=== PATIENT | male | born 1995 | race Caucasian/White ===

== ENCOUNTER 2019-10-12 18:36 | Inpatient (IN) | payer BC ==
[~2019-10-12] VITALS: Ht 172.7 cm; Wt 138.3 kg
[2019-10-12 19:00] VITALS: BP 138/75
[2019-10-12] MEDS ORDERED: fentaNYL PF VIAL 100 MCG/2 ML VIAL IVP PRN (19:15)
[2019-10-12] MEDS ORDERED: PIP/TAZO PER PHARMACY MC PRN (19:15)
[2019-10-12] MEDS: IV NORMAL SALINE 1000ML BAG 1,000 ML IV SCH (19:58)
[2019-10-12] MEDS: PIPERACILLIN/TAZOBACTAM 3.375 GM in IV NORMAL SALINE 50ML 50 ML IV SCH (20:18)
[2019-10-12] MEDS: LACTOBACILLUS RHAMNOSUS GG 1 CAPSULE. PO SCH (21:47)
[2019-10-12 23:00] VITALS: BP 123/57
[2019-10-13] MEDS: PIPERACILLIN/TAZOBACTAM 3.375 GM in IV NORMAL SALINE 50ML 50 ML IV SCH ×2 (00:28→06:15)
[2019-10-13] MEDS: ACETAMINOPHEN 325 MG TABLET. PO PRN ×3 (00:29→21:19)
[2019-10-13 03:00] VITALS: BP 142/88
[2019-10-13 05:58] LABS: BASO # 0.1 x10^3/uL (0.0-0.2); BASO % 1 % (0-3); EOS # 0.3 x10^3/uL (0.0-0.7); EOS % 3 % (0-3); HEMATOCRIT 35.7 % (39.0-53.0); HEMOGLOBIN 11.9 g/dL (13.0-17.5); LYMPH # 1.3 x10^3/uL (1.0-4.8); LYMPH % 14 % (24-48); MEAN CORPUSCULAR HEMOGLOBIN 29 pg (25-35); MEAN CORPUSCULAR HGB CONC 33 g/dL (31-37); MEAN CORPUSCULAR VOLUME 86 fL (79-100); MONO # 0.9 x10^3/uL (0.0-1.1); MONO % 9 % (0-9); NEUT # 7.2 x10^3/uL (1.8-7.7); NEUT % 74 % (31-73); PLATELET COUNT 238 x10^3/uL (140-400); RED BLOOD COUNT 4.12 x10^6/uL (4.30-5.70); RED CELL DISTRIBUTION WIDTH 13.3 % (11.5-14.5); WHITE BLOOD COUNT 9.7 x10^3/uL (4.0-11.0)
[2019-10-13 06:06] LABS: ALBUMIN 2.4 g/dL (3.4-5.0); ALBUMIN/GLOBULIN RATIO 0.6 (1.0-1.7); CALCIUM 8.8 mg/dL (8.5-10.1); GFR 41.6; POTASSIUM 3.5 mmol/L (3.5-5.1); TOTAL BILIRUBIN 0.4 mg/dL (0.2-1.0); TOTAL PROTEIN 6.6 g/dL (6.4-8.2)
[2019-10-13 07:00] VITALS: BP 150/79
[2019-10-13] MEDS: LACTOBACILLUS RHAMNOSUS GG 1 CAPSULE. PO SCH ×2 (08:14→20:31)
[2019-10-13] MEDS: IV NORMAL SALINE 1000ML BAG 1,000 ML IV SCH ×2 (09:46→16:00)
[2019-10-13 11:00] VITALS: BP 132/74
--- NOTE | 2019-10-13 11:17 | PDOC2 ---
CONSULT Date of Consult Date of Consult DATE: 10/13/19 TIME: 11:12 Reason for Consult Reason for Consult: GINA Referring Physician Referring Physician: PRECIOUS Identification/Chief Complaint Chief Complaint ABD PAIN Source Source: Chart review, Patient History of Present Illness Reason for Visit: THIS IS A 24 YR OLD WITH ABD PAIN. INITIALLY STARTED A BLISTER OR A PIMPLE THEN IT REDNESS OVER HIS ABD WALL AND NOW HE HAS AN ABSCESS. HAS BEEN AT [facility] GETTING ABX AND NOW HAS GINA WITH CR OF 2.0 AND HE WAS TRANSFERRED HERE. SUSPICIOUS FOR VANC RELATED GINA WITH VANC TROUGH LEVEL OF OVER 30. NO CKD HX. NO HX OF DM OR HTN OR HEMODYNAMIC INSTABILITY. NO NEPHROTOXINS, NO PROBLEMS VOIDING AND NO OTHER HX Current Medications Current Medications Current Medications Acetaminophen (Tylenol) 650 mg PRN Q6HRS PRN PO MILD PAIN / TEMP Last administered on 10/13/19at 00:29; Start 10/12/19 at 19:15 Sodium Chloride 1,000 ml @ 100 mls/hr Q10H IV Last administered on 10/13/19at 09:46; Start 10/12/19 at 20:00 Lactobacillus Rhamnosus (Culturelle) 1 cap BID PO Last administered on 10/12/19at 21:47; Start 10/12/19 at 21:00 Linezolid/Dextrose 300 ml @ 300 mls/hr Q12HR IV Last administered on 10/13/19at 09:47; Start 10/12/19 at 21:00 Piperacillin Sod/ Tazobactam Sod (Zosyn Per Pharmacy) 1 each PRN DAILY PRN [facility] SEE COMMENTS; Start 10/12/19 at 19:15; Status UNV Piperacillin Sod/ Tazobactam Sod 3.375 gm/Sodium Chloride 50 ml @ 100 mls/hr Q6HRS IV Last administered on 10/13/19at 06:15; Start 10/12/19 at 20:00; Stop 10/13/19 at 11:07; Status DC Fentanyl Citrate (Fentanyl 2ml Vial) 50 mcg PRN Q2HR PRN IVP PAIN Last administered on 10/12/19at 19:58; Start 10/12/19 at 19:15 Piperacillin Sod/ Tazobactam Sod 2.25 gm/Sodium Chloride 50 ml @ 100 mls/hr Q8HRS IV ; Start 10/13/19 at 14:00 Allergies Allergies: Coded Allergies: erythromycin base (Verified Allergy, Intermediate, 10/12/19) ROS General: YES: Fatigue PSYCHOLOGICAL ROS: YES: Anxiety Gastrointestinal: Yes Abdominal Pain Musculoskeletal: Yes Muscular Weakness Physical Exam General: Alert, Oriented X3, Cooperative, No acute distress, mild distress HEENT: Atraumatic, PERRLA Lungs: Clear to auscultation, Normal air movement Heart: Regular rate, Normal S1, Normal S2 Abdomen: Normal bowel sounds, Soft, Other (ABSCESS ABD WALL WITH DRAINAGE) Extremities: No clubbing, No cyanosis Skin: No breakdown Neuro: Normal speech, Sensation intact, Cranial nerves 3-12 NL Psych/Mental Status: Mental status NL, Mood NL MUSCULOSKELETAL: No joint tenderness, No deformity, No swelling Vitals VITALS Vital Signs Date Time Temp Pulse Resp B/P (MAP) Pulse Ox O2 Delivery O2 Flow Rate FiO2 10/13/19 08:00 Room Air 10/13/19 07:00 98.6 94 18 150/79 (102) 98 98.6 Labs Labs Laboratory Tests Test 10/13/19 05:15 White Blood Count 9.7 x10^3/uL (4.0-11.0) Red Blood Count 4.12 x10^6/uL (4.30-5.70) Hemoglobin 11.9 g/dL (13.0-17.5) Hematocrit 35.7 % (39.0-53.0) Mean Corpuscular Volume 86 fL (79-100) Mean Corpuscular Hemoglobin 29 pg (25-35) Mean Corpuscular Hemoglobin Concent 33 g/dL (31-37) Red Cell Distribution Width 13.3 % (11.5-14.5) Platelet Count 238 x10^3/uL (140-400) Neutrophils (%) (Auto) 74 % (31-73) Lymphocytes (%) (Auto) 14 % (24-48) Monocytes (%) (Auto) 9 % (0-9) Eosinophils (%) (Auto) 3 % (0-3) Basophils (%) (Auto) 1 % (0-3) Neutrophils # (Auto) 7.2 x10^3/uL (1.8-7.7) Lymphocytes # (Auto) 1.3 x10^3/uL (1.0-4.8) Monocytes # (Auto) 0.9 x10^3/uL (0.0-1.1) Eosinophils # (Auto) 0.3 x10^3/uL (0.0-0.7) Basophils # (Auto) 0.1 x10^3/uL (0.0-0.2) Sodium Level 143 mmol/L (136-145) Potassium Level 3.5 mmol/L (3.5-5.1) Chloride Level 109 mmol/L (98-107) Carbon Dioxide Level 23 mmol/L (21-32) Anion Gap 11 (6-14) Blood Urea Nitrogen 11 mg/dL (8-26) Creatinine 2.0 mg/dL (0.7-1.3) Estimated GFR (Cockcroft-Gault) 41.6 BUN/Creatinine Ratio 6 (6-20) Glucose Level 92 mg/dL (70-99) Calcium Level 8.8 mg/dL (8.5-10.1) Total Bilirubin 0.4 mg/dL (0.2-1.0) Aspartate Amino Transf (AST/SGOT) 31 U/L (15-37) Alanine Aminotransferase (ALT/SGPT) 68 U/L (16-63) Alkaline Phosphatase 86 U/L (46-116) Total Protein 6.6 g/dL (6.4-8.2) Albumin 2.4 g/dL (3.4-5.0) Albumin/Globulin Ratio 0.6 (1.0-1.7) Laboratory Tests Test 10/13/19 05:15 White Blood Count 9.7 x10^3/uL (4.0-11.0) Red Blood Count 4.12 x10^6/uL (4.30-5.70) Hemoglobin 11.9 g/dL (13.0-17.5) Hematocrit 35.7 % (39.0-53.0) Mean Corpuscular Volume 86 fL (79-100) Mean Corpuscular Hemoglobin 29 pg (25-35) Mean Corpuscular Hemoglobin Concent 33 g/dL (31-37) Red Cell Distribution Width 13.3 % (11.5-14.5) Platelet Count 238 x10^3/uL (140-400) Neutrophils (%) (Auto) 74 % (31-73) Lymphocytes (%) (Auto) 14 % (24-48) Monocytes (%) (Auto) 9 % (0-9) Eosinophils (%) (Auto) 3 % (0-3) Basophils (%) (Auto) 1 % (0-3) Neutrophils # (Auto) 7.2 x10^3/uL (1.8-7.7) Lymphocytes # (Auto) 1.3 x10^3/uL (1.0-4.8) Monocytes # (Auto) 0.9 x10^3/uL (0.0-1.1) Eosinophils # (Auto) 0.3 x10^3/uL (0.0-0.7) Basophils # (Auto) 0.1 x10^3/uL (0.0-0.2) Sodium Level 143 mmol/L (136-145) Potassium Level 3.5 mmol/L (3.5-5.1) Chloride Level 109 mmol/L (98-107) Carbon Dioxide Level 23 mmol/L (21-32) Anion Gap 11 (6-14) Blood Urea Nitrogen 11 mg/dL (8-26) Creatinine 2.0 mg/dL (0.7-1.3) Estimated GFR (Cockcroft-Gault) 41.6 BUN/Creatinine Ratio 6 (6-20) Glucose Level 92 mg/dL (70-99) Calcium Level 8.8 mg/dL (8.5-10.1) Total Bilirubin 0.4 mg/dL (0.2-1.0) Aspartate Amino Transf (AST/SGOT) 31 U/L (15-37) Alanine Aminotransferase (ALT/SGPT) 68 U/L (16-63) Alkaline Phosphatase 86 U/L (46-116) Total Protein 6.6 g/dL (6.4-8.2) Albumin 2.4 g/dL (3.4-5.0) Albumin/Globulin Ratio 0.6 (1.0-1.7) Assessment/Plan Assessment/Plan IMP GINA-MOST LIKEY DUE TO VANC ABD WALL ABSCESS PLAN HYDRATION CHECK UA R/O INTERSTITIAL NEPHRITIS ANTIBIOTICS WILL FOLLOW D/W OREN LAKHANI MD Oct 13, 2019 11:17
--- NOTE | 2019-10-13 11:46 | HP ---
ADMIT DATE: 10/12/2019 HISTORY OF PRESENT ILLNESS: The patient is a 24-year-old male patient, who was admitted to [facility] through the Emergency Room with abdominal wall cellulitis and abdominal wall abscess that was initially incised and swab sent for culture and sensitivity that grew gram-positive cocci, identified Staphylococcus aureus. The sensitivity is still pending at the time of this dictation. We did start him there on IV vancomycin and Zosyn. Unfortunately, his kidney function has worsened. His creatinine has risen from 1.1-1.9 and his vancomycin trough level was high at 30.1, so we discontinued that completely, switched him to Zyvox. He also developed an area of induration on his left side of the abdominal wall, left to the regional small abdominal wall abscess and repeat ultrasound showed that there are 3 fluid collections that are interconnected with a total measuring about 9.6 cm abscess, not excluded. Because of the abscess formation and worsening kidney function, the patient was transferred to [facility] to consult the surgical team, the park attendant as well as the Infectious Disease specialist. PAST MEDICAL HISTORY: Unremarkable except for bronchial asthma that he outgrow. PAST SURGICAL HISTORY: Unremarkable. ALLERGIES: HE IS ALLERGIC TO ERYTHROMYCIN. MEDICATIONS: He was transferred to continue on following medications: He is on IV Zyvox 600 mg every 12 hours, fentanyl 50 mcg IV every 2 hours, acetaminophen 650 mg every 6 hours, lactobacillus rhamnosus 1 capsule twice a day, and normal saline at 100 mL per hour. FAMILY HISTORY: Noncontributory. SOCIAL HISTORY: Single, never , has no children. He does not smoke, drink alcohol or use recreational drugs. He works as a sustainability officer. REVIEW OF SYSTEMS: As per history of present illness. PHYSICAL EXAMINATION: GENERAL: When I saw him today, he looked well and was clearly in no apparent respiratory distress. No pallor, jaundice, cyanosis or thyromegaly. No jugular venous distention. No lower limb edema. VITAL SIGNS: Heart rate was 94, blood pressure was 150/79, temperature was 98.6, respiratory rate was 18 and oxygen saturation was 98% on room air. HEAD, EYES, EARS, NOSE AND THROAT: Showed normocephalic, atraumatic. NECK: Supple. HEART: Showed normal first and second heart sounds. No gallop, rub or murmur. CHEST: Clear to auscultation. No crepitation or rhonchi. ABDOMEN: Distended with an indurated area mostly in the left to the midline, tender to palpation with erythema in the overlying skin. There is no guarding or rigidity. No organomegaly. All hernial orifices intact. Bowel sounds normal. NEUROLOGIC: He is awake, alert, responding appropriately. All cranial nerves intact. He moves extremities without difficulty. LABORATORY DATA: Showed that his white cell count was 9700, hemoglobin 11.9, hematocrit 36, MCV 86 and platelet count 258,000. His chemistry showed a serum sodium 143, potassium 3.5, chloride 109, bicarbonate 23, anion gap of 11, BUN 11, creatinine was 2. Estimated GFR was 42 mL per minute. His glucose was 92, calcium was 8.8. Total bilirubin, AST, ALT, alkaline phosphatase are normal. Total protein 6.6, albumin 2.4. ASSESSMENT AND PLAN: In summary, this is a 24-year-old male patient, who was admitted originally with abdominal wall cellulitis and with small abdominal abscess that was incised and drained. He was admitted to [facility] and was started on IV vancomycin and Zosyn. Unfortunately, his kidney function worsened. His creatinine has risen from 1.1-1.9, felt to be likely due to vancomycin nephrotoxicity, although he did receive also some ketorolac injection. Subsequent evaluation showed that he has also abdominal wall abscess and therefore, the patient was transferred to [facility] to consult the surgical team for incision and drainage. Consult the Nephrology team to assist with management of his acute kidney injury and Infectious Disease to assist with antibiotic treatment. WILBUR LANG MD DR: FRED/marva JOB#: [id number] / [id number]
--- NOTE | 2019-10-13 11:53 | PDOC2 ---
CONSULT Date of Consult Date of Consult DATE: 10/13/19 TIME: 11:49 Reason for Consult Reason for Consult: abd wall abscess Referring Physician Referring Physician: Dr. Lima Identification/Chief Complaint Chief Complaint abd wall pain and drainage Source Source: Chart review, Patient History of Present Illness Reason for Visit: 24 yo M with abdominal wall abscess. Began as boil week ago and attempted popping. Developed diffuse inflammation of abdominal wall pannus. Also noted to have drainage in midline. Currently appears comfortable. Past Medical History Cardiovascular: No pertinent hx Past Surgical History Past Surgical History: No pertinent history Family History Family History: No Significant Social History No ALCOHOL: none Current Medications Current Medications Current Medications Acetaminophen (Tylenol) 650 mg PRN Q6HRS PRN PO MILD PAIN / TEMP Last administered on 10/13/19at 00:29; Start 10/12/19 at 19:15 Sodium Chloride 1,000 ml @ 100 mls/hr Q10H IV Last administered on 10/13/19at 09:46; Start 10/12/19 at 20:00 Lactobacillus Rhamnosus (Culturelle) 1 cap BID PO Last administered on 10/12at 21:47; Start 10/12/19 at 21:00 Linezolid/Dextrose 300 ml @ 300 mls/hr Q12HR IV Last administered on 10/13/19at 09:47; Start 10/12/19 at 21:00 Piperacillin Sod/ Tazobactam Sod (Zosyn Per Pharmacy) 1 each PRN DAILY PRN MC SEE COMMENTS; Start 10/12/19 at 19:15; Status UNV Piperacillin Sod/ Tazobactam Sod 3.375 gm/Sodium Chloride 50 ml @ 100 mls/hr Q6HRS IV Last administered on 10/13/19at 06:15; Start 10/12/19 at 20:00; Stop 10/13/19 at 11:07; Status DC Fentanyl Citrate (Fentanyl 2ml Vial) 50 mcg PRN Q2HR PRN IVP PAIN Last administered on 10/12/19at 19:58; Start 10/12/19 at 19:15 Piperacillin Sod/ Tazobactam Sod 2.25 gm/Sodium Chloride 50 ml @ 100 mls/hr Q8HRS IV ; Start 10/13/19 at 14:00 Allergies Allergies: Coded Allergies: erythromycin base (Verified Allergy, Intermediate, 10/12/19) ROS Gastrointestinal: Yes Abdominal Pain Physical Exam General: Alert, Oriented X3, Cooperative, No acute distress HEENT: Atraumatic Lungs: Normal air movement Abdomen: Soft, Other (lower abdominal wall induration and erythema, small opening with drainage on dressing, but not inducible) Psych/Mental Status: Mental status NL, Mood NL Vitals VITALS Vital Signs Date Time Temp Pulse Resp B/P (MAP) Pulse Ox O2 Delivery O2 Flow Rate FiO2 10/13/19 08:00 Room Air 10/13/19 07:00 98.6 94 18 150/79 (102) 98 98.6 Labs Labs Laboratory Tests Test 10/13/19 05:15 White Blood Count 9.7 x10^3/uL (4.0-11.0) Red Blood Count 4.12 x10^6/uL (4.30-5.70) Hemoglobin 11.9 g/dL (13.0-17.5) Hematocrit 35.7 % (39.0-53.0) Mean Corpuscular Volume 86 fL (79-100) Mean Corpuscular Hemoglobin 29 pg (25-35) Mean Corpuscular Hemoglobin Concent 33 g/dL (31-37) Red Cell Distribution Width 13.3 % (11.5-14.5) Platelet Count 238 x10^3/uL (140-400) Neutrophils (%) (Auto) 74 % (31-73) Lymphocytes (%) (Auto) 14 % (24-48) Monocytes (%) (Auto) 9 % (0-9) Eosinophils (%) (Auto) 3 % (0-3) Basophils (%) (Auto) 1 % (0-3) Neutrophils # (Auto) 7.2 x10^3/uL (1.8-7.7) Lymphocytes # (Auto) 1.3 x10^3/uL (1.0-4.8) Monocytes # (Auto) 0.9 x10^3/uL (0.0-1.1) Eosinophils # (Auto) 0.3 x10^3/uL (0.0-0.7) Basophils # (Auto) 0.1 x10^3/uL (0.0-0.2) Sodium Level 143 mmol/L (136-145) Potassium Level 3.5 mmol/L (3.5-5.1) Chloride Level 109 mmol/L (98-107) Carbon Dioxide Level 23 mmol/L (21-32) Anion Gap 11 (6-14) Blood Urea Nitrogen 11 mg/dL (8-26) Creatinine 2.0 mg/dL (0.7-1.3) Estimated GFR (Cockcroft-Gault) 41.6 BUN/Creatinine Ratio 6 (6-20) Glucose Level 92 mg/dL (70-99) Calcium Level 8.8 mg/dL (8.5-10.1) Total Bilirubin 0.4 mg/dL (0.2-1.0) Aspartate Amino Transf (AST/SGOT) 31 U/L (15-37) Alanine Aminotransferase (ALT/SGPT) 68 U/L (16-63) Alkaline Phosphatase 86 U/L (46-116) Total Protein 6.6 g/dL (6.4-8.2) Albumin 2.4 g/dL (3.4-5.0) Albumin/Globulin Ratio 0.6 (1.0-1.7) Laboratory Tests Test 10/13/19 05:15 White Blood Count 9.7 x10^3/uL (4.0-11.0) Red Blood Count 4.12 x10^6/uL (4.30-5.70) Hemoglobin 11.9 g/dL (13.0-17.5) Hematocrit 35.7 % (39.0-53.0) Mean Corpuscular Volume 86 fL (79-100) Mean Corpuscular Hemoglobin 29 pg (25-35) Mean Corpuscular Hemoglobin Concent 33 g/dL (31-37) Red Cell Distribution Width 13.3 % (11.5-14.5) Platelet Count 238 x10^3/uL (140-400) Neutrophils (%) (Auto) 74 % (31-73) Lymphocytes (%) (Auto) 14 % (24-48) Monocytes (%) (Auto) 9 % (0-9) Eosinophils (%) (Auto) 3 % (0-3) Basophils (%) (Auto) 1 % (0-3) Neutrophils # (Auto) 7.2 x10^3/uL (1.8-7.7) Lymphocytes # (Auto) 1.3 x10^3/uL (1.0-4.8) Monocytes # (Auto) 0.9 x10^3/uL (0.0-1.1) Eosinophils # (Auto) 0.3 x10^3/uL (0.0-0.7) Basophils # (Auto) 0.1 x10^3/uL (0.0-0.2) Sodium Level 143 mmol/L (136-145) Potassium Level 3.5 mmol/L (3.5-5.1) Chloride Level 109 mmol/L (98-107) Carbon Dioxide Level 23 mmol/L (21-32) Anion Gap 11 (6-14) Blood Urea Nitrogen 11 mg/dL (8-26) Creatinine 2.0 mg/dL (0.7-1.3) Estimated GFR (Cockcroft-Gault) 41.6 BUN/Creatinine Ratio 6 (6-20) Glucose Level 92 mg/dL (70-99) Calcium Level 8.8 mg/dL (8.5-10.1) Total Bilirubin 0.4 mg/dL (0.2-1.0) Aspartate Amino Transf (AST/SGOT) 31 U/L (15-37) Alanine Aminotransferase (ALT/SGPT) 68 U/L (16-63) Alkaline Phosphatase 86 U/L (46-116) Total Protein 6.6 g/dL (6.4-8.2) Albumin 2.4 g/dL (3.4-5.0) Albumin/Globulin Ratio 0.6 (1.0-1.7) Images Images Previous abd US demonstrates fluid collection Assessment/Plan Assessment/Plan abd wall abscess appears to be spontaneously draining agree with abx and wound care no necrotic tissue or fluctuant area monitor cr per nephrology. Thanks for consult! FRANCOIS ZURITA MD Oct 13, 2019 11:53
[2019-10-13 12:59] LABS: BILIRUBIN,URINE NEGATIVE (NEG); CLARITY,URINE CLEAR; COLOR,URINE YELLOW; NITRITE,URINE NEGATIVE (NEG); PH,URINE 6.5; PROTEIN,URINE NEGATIVE (NEG-TRACE); UROBILINOGEN,URINE 0.2 mg/dL (0.2 mg/dL)
[2019-10-13 13:10] LABS: BACTERIA,URINE 0 /HPF (0-FEW); RBC,URINE OCC /HPF (0-2); SQUAMOUS EPITHELIAL CELL,UR OCC /LPF
[2019-10-13] MEDS: PIPERACILLIN/TAZOBACTAM 2.25 GM in IV NORMAL SALINE 50ML 50 ML IV SCH ×2 (13:57→22:21)
[2019-10-13 15:00] VITALS: BP 132/78
--- NOTE | 2019-10-13 18:36 | PDOC ---
Infectious Disease Note Vital Sign Vital Signs Vital Signs Date Time Temp Pulse Resp B/P (MAP) Pulse Ox O2 Delivery O2 Flow Rate FiO2 10/13/19 15:00 98.2 90 18 132/78 (96) 97 Room Air 98.2 Labs Lab Laboratory Tests Test 10/13/19 05:15 10/13/19 12:44 White Blood Count 9.7 x10^3/uL (4.0-11.0) Red Blood Count 4.12 x10^6/uL (4.30-5.70) Hemoglobin 11.9 g/dL (13.0-17.5) Hematocrit 35.7 % (39.0-53.0) Mean Corpuscular Volume 86 fL (79-100) Mean Corpuscular Hemoglobin 29 pg (25-35) Mean Corpuscular Hemoglobin Concent 33 g/dL (31-37) Red Cell Distribution Width 13.3 % (11.5-14.5) Platelet Count 238 x10^3/uL (140-400) Neutrophils (%) (Auto) 74 % (31-73) Lymphocytes (%) (Auto) 14 % (24-48) Monocytes (%) (Auto) 9 % (0-9) Eosinophils (%) (Auto) 3 % (0-3) Basophils (%) (Auto) 1 % (0-3) Neutrophils # (Auto) 7.2 x10^3/uL (1.8-7.7) Lymphocytes # (Auto) 1.3 x10^3/uL (1.0-4.8) Monocytes # (Auto) 0.9 x10^3/uL (0.0-1.1) Eosinophils # (Auto) 0.3 x10^3/uL (0.0-0.7) Basophils # (Auto) 0.1 x10^3/uL (0.0-0.2) Sodium Level 143 mmol/L (136-145) Potassium Level 3.5 mmol/L (3.5-5.1) Chloride Level 109 mmol/L (98-107) Carbon Dioxide Level 23 mmol/L (21-32) Anion Gap 11 (6-14) Blood Urea Nitrogen 11 mg/dL (8-26) Creatinine 2.0 mg/dL (0.7-1.3) Estimated GFR (Cockcroft-Gault) 41.6 BUN/Creatinine Ratio 6 (6-20) Glucose Level 92 mg/dL (70-99) Calcium Level 8.8 mg/dL (8.5-10.1) Total Bilirubin 0.4 mg/dL (0.2-1.0) Aspartate Amino Transf (AST/SGOT) 31 U/L (15-37) Alanine Aminotransferase (ALT/SGPT) 68 U/L (16-63) Alkaline Phosphatase 86 U/L (46-116) Total Protein 6.6 g/dL (6.4-8.2) Albumin 2.4 g/dL (3.4-5.0) Albumin/Globulin Ratio 0.6 (1.0-1.7) Urine Collection Type Unknown Urine Color Yellow Urine Clarity Clear Urine pH 6.5 Urine Specific [place] 1.010 Urine Protein Negative mg/dL (NEG-TRACE) Urine Glucose (UA) Negative mg/dL (NEG) Urine Ketones (Stick) Negative mg/dL (NEG) Urine Blood Trace (NEG) Urine Nitrite Negative (NEG) Urine Bilirubin Negative (NEG) Urine Urobilinogen Dipstick 0.2 mg/dL (0.2 mg/dL) Urine Leukocyte Esterase Trace (NEG) Urine RBC Occ /HPF (0-2) Urine WBC 1-4 /HPF (0-4) Urine Squamous Epithelial Cells Occ /LPF Urine Bacteria 0 /HPF (0-FEW) Objective Assessment Abdominal wall abscesses with growth of MSSA Abdominal wall cellulitis Leukocytosis Fever GINA Plan Plan of Care Continue Zosyn and Zyvox for now No surgical plans at this time Nephrology is following Continue to monitor Thank you [id number] Patient seen and examined. Chart reviewed in detail. Case discussed with DRY ROOM OPERATOR, I agree with above plan. MABLE CHAU APRN Oct 13, 2019 18:35 JEREMIAH ALY MD Oct 13, 2019 22:38
[2019-10-13 19:00] VITALS: BP 138/78
--- NOTE | 2019-10-13 19:24 | CONS ---
DATE OF CONSULTATION: 10/13/2019 REFERRING PHYSICIAN: Dr. Lima. REASON FOR CONSULTATION: Abdominal wall abscess. HISTORY OF PRESENT ILLNESS: This patient is a pleasant 24-year-old male who about a week ago developed a small pimple on lower abdominal area. He tried to squeeze it, but nothing came out. Since then, he has developed worsening redness, pain associated with fever, sweats and headache. He presented to [facility] Emergency Room for evaluation. He had a WBC count of 13,000. Lactic acid 1.1. Abdominal ultrasound showed a 2.2 x 1.0 x 1.4 cm hypoechoic irregularly marginated collection with associated subcutaneous edema. He underwent an incision and drainage in the Emergency Room. He was started on vancomycin and Zosyn. He later developed acute kidney injury. His creatinine mila to 1.9 from 1.1 and vancomycin trough increased to 30.1. Vancomycin was switched to Zyvox. Wound culture grew methicillin-susceptible Staphylococcus aureus. Blood cultures remained negative. A followup abdominal ultrasound demonstrated 3 fluid collections measuring 3.6 x 3.7 x 2.3 cm appearing to be connected to one another and could be a long fluid collection measuring a total of 9.6 cm; abscess is not excluded. Compared to prior, this appears to have increased. He was transferred to [place] for further evaluation. He was seen by Dr. Bailey with no surgical intervention planned at this time as the abscess is now spontaneously draining. The patient says that he is feeling better. His fevers have settled down. The abdominal wall redness is fading and the pain is less intense. He denies previous history of skin infections. He says he works out and normally has pimples develop. PAST MEDICAL HISTORY: No significant past medical history. PAST SURGICAL HISTORY: No significant past surgical history. FAMILY HISTORY: Noncontributory. SOCIAL HISTORY: The patient is single. 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 He has 2 dogs and 2 cats. He is a nonsmoker. ALLERGIES: ERYTHROMYCIN CAUSING HIS EYE TO SWELL. MEDICATIONS: Zyvox, Zosyn, probiotics, acetaminophen, fentanyl; previously on vancomycin. REVIEW OF SYSTEMS: Per HPI, otherwise all other review of systems are negative. PHYSICAL EXAMINATION: VITAL SIGNS: Temperature 98.2, blood pressure 132/78, heart rate 90, respiratory rate 18, pulse oximetry 97% on room air. Body mass index 47. GENERAL: The patient is propped up in bed, alert, watching TV, appears comfortable. HEENT: Pupils equally round and reactive. Oropharynx pink and moist. NECK: Supple. LUNGS: Clear to auscultation. CARDIAC: S1 and S2. ABDOMEN: Obese, soft, bowel sounds present. He has a small wound with an area of induration and mild erythema and minimal drainage. No fluctuance. EXTREMITIES: No gross edema or cyanosis. SKIN: Warm to touch without signs of rash. NEUROLOGIC: Alert and answering questions appropriately. LINES: RUE-PICC without signs of any complications. LABORATORY DATA: Today's WBC 9.7, hemoglobin 11.9, platelets 238,000. Sodium 143, potassium 3.5, creatinine 2.0, BUN 11, glucose 92, total bilirubin 0.4, AST 31, ALT 68, albumin 2.4. Urinalysis unremarkable for infection. Abdominal ultrasound per [facility]. IMPRESSION: 1. Abdominal wall abscesses with growth of methicillin-susceptible Staphylococcus aureus. 2. Abdominal wall cellulitis. 3. Leukocytosis. 4. Fever. 5. Acute kidney injury. 6. ERYTHROMYCIN ALLERGY. PLAN: Continue Zosyn and Zyvox for now. Blood cultures from the 11th ([facility]) are negative to date. Nephrology is following. Dr. Bailey has seen patient with no plans for intervention at this time. Continue to monitor. Thank you, Dr. Lima, for asking us to participate in this patient's care. Should you have further questions or concerns, please call. JEREMIAH ALY MD DR: SHAGGY/marva JOB#: [id number] / [id number]
[2019-10-13 23:00] VITALS: BP 140/82
[2019-10-14 03:00] VITALS: BP 131/72
[2019-10-14] MEDS: IV NORMAL SALINE 1000ML BAG 1,000 ML IV SCH ×3 (03:33→23:48)
[2019-10-14] MEDS: PIPERACILLIN/TAZOBACTAM 2.25 GM in IV NORMAL SALINE 50ML 50 ML IV SCH ×3 (05:15→23:48)
[2019-10-14] MEDS: ACETAMINOPHEN 325 MG TABLET. PO PRN (05:21)
[2019-10-14 07:00] VITALS: BP 134/81
[2019-10-14] MEDS: LACTOBACILLUS RHAMNOSUS GG 1 CAPSULE. PO SCH ×2 (09:02→21:07)
[2019-10-14 11:00] VITALS: BP 140/78
--- NOTE | 2019-10-14 11:29 | PN ---
DATE: 10/14/2019 SUBJECTIVE: The patient is resting flat, comfortably in bed, in no apparent distress. He denied any abdominal pain. He denied any chills, rigors, or fever. OBJECTIVE: GENERAL: When I examined him this morning, he looked well and was clearly in no apparent respiratory distress. VITAL SIGNS: His heart rate was 77, blood pressure 134/81, temperature 98.1, respiratory rate was 16, and oxygen saturation was 96%. ABDOMEN: The erythema of his abdominal wall is fading away, although he still has an area of induration, mostly on the left lower quadrant. He continued to have some purulent drainage. LABORATORY DATA: His lab work today is still pending at the time of this dictation. ASSESSMENT AND PLAN: He was seen by the surgical team and they did not recommend any surgical intervention until his kidney function improves. The plan is to basically continue with IV antibiotic. His culture from the abdominal wound showed growth of methicillin-sensitive Staphylococcus aureus sensitive to ciprofloxacin, clindamycin, gentamicin, levofloxacin, linezolid, and vancomycin. WILBUR LANG MD DR: FRED/marva JOB#: [id number] / [id number]
[2019-10-14 11:36] LABS: CALCIUM 8.5 mg/dL (8.5-10.1); CREATININE 1.8 mg/dL (0.7-1.3); POTASSIUM 3.2 mmol/L (3.5-5.1)
--- NOTE | 2019-10-14 12:08 | PDOC ---
Infectious Disease Note Subjective Subjective c/o mild pain No F/C/N/F/D/SOA Vital Sign Vital Signs Vital Signs Date Time Temp Pulse Resp B/P (MAP) Pulse Ox O2 Delivery O2 Flow Rate FiO2 10/14/19 08:00 Room Air 10/14/19 07:00 98.1 77 16 134/81 (98) 96 98.1 Physical Exam PHYSICAL EXAM GENERAL: Lying down, alert in NAD HEENT: Pupils equally round and reactive. Oropharynx pink and moist. NECK: Supple. LUNGS: Clear to auscultation. CARDIAC: S1 and S2. ABDOMEN: Obese, soft, bowel sounds present. A small wound + drainage and induration, no erythema of fluctuance EXTREMITIES: No gross edema or cyanosis. SKIN: Warm to touch without signs of rash. NEUROLOGIC: Alert and answering questions appropriately. [facility] Labs Lab Laboratory Tests Test 10/13/19 12:44 10/14/19 11:13 Urine Collection Type Unknown Urine Color Yellow Urine Clarity Clear Urine pH 6.5 Urine Specific [place] 1.010 Urine Protein Negative mg/dL (NEG-TRACE) Urine Glucose (UA) Negative mg/dL (NEG) Urine Ketones (Stick) Negative mg/dL (NEG) Urine Blood Trace (NEG) Urine Nitrite Negative (NEG) Urine Bilirubin Negative (NEG) Urine Urobilinogen Dipstick 0.2 mg/dL (0.2 mg/dL) Urine Leukocyte Esterase Trace (NEG) Urine RBC Occ /HPF (0-2) Urine WBC 1-4 /HPF (0-4) Urine Squamous Epithelial Cells Occ /LPF Urine Bacteria 0 /HPF (0-FEW) Sodium Level 142 mmol/L (136-145) Potassium Level 3.2 mmol/L (3.5-5.1) Chloride Level 106 mmol/L (98-107) Carbon Dioxide Level 29 mmol/L (21-32) Anion Gap 7 (6-14) Blood Urea Nitrogen 10 mg/dL (8-26) Creatinine 1.8 mg/dL (0.7-1.3) Estimated GFR (Cockcroft-Gault) 47.0 Glucose Level 121 mg/dL (70-99) Calcium Level 8.5 mg/dL (8.5-10.1) Objective Assessment Abdominal wall abscesses with growth of MSSA ([facility]) Abdominal wall cellulitis Leukocytosis - improved Fever - improved GINA Plan Plan of Care Continue Zosyn and Zyvox for now No surgical plans at this time Nephrology is following Continue to monitor D/w mother at bedside Patient seen and examined. Chart reviewed in detail. Case discussed with FRAME TRIMMER. I agree with above plan. MABLE CHAU APRN Oct 14, 2019 12:08 JEREMIAH ALY MD Oct 14, 2019 19:20
--- NOTE | 2019-10-14 14:20 | PDOC ---
Renal-Progress Notes Subjective Notes Notes NO NEW COMPLAINTS History of Present Illness Hx of present illness STABLE Vitals Vitals Vital Signs Date Time Temp Pulse Resp B/P (MAP) Pulse Ox O2 Delivery O2 Flow Rate FiO2 10/14/19 11:00 98.1 82 16 140/78 (98) 95 Room Air 98.1 Weight Weight [ ] I.O. Intake and Output Intake and Output 10/14/19 07:00 Intake Total 2100 ml Output Total 1300 ml Balance 800 ml Intake Oral 2100 ml Output Urine Total 1300 ml # Voids 2 Labs Labs Laboratory Tests Test 10/14/19 11:13 Sodium Level 142 mmol/L (136-145) Potassium Level 3.2 mmol/L (3.5-5.1) Chloride Level 106 mmol/L (98-107) Carbon Dioxide Level 29 mmol/L (21-32) Anion Gap 7 (6-14) Blood Urea Nitrogen 10 mg/dL (8-26) Creatinine 1.8 mg/dL (0.7-1.3) Estimated GFR (Cockcroft-Gault) 47.0 Glucose Level 121 mg/dL (70-99) Calcium Level 8.5 mg/dL (8.5-10.1) Review of Systems Constitutional: yes: alert, oriented Ears/Nose/Throat: Yes: no symptom reported Eyes: Yes: no symptom reported Pulmonary: Yes no symptom reported Cardiovascular: Yes no symptom reported Gastrointestional: Yes: no symptom reported Genitourinary: Yes: no symptom reported Musculoskeletal: Yes: no symptom reported Skin: Yes no symptom reported Psychiatric/Neurological: Yes: no symptom reported Endocrine: Yes: no symptom reported Hematologic/Lymphatic: Yes: no symptom reported Physical Exam General Appearance: no apparent distress Skin: warm Respiratory: decreased breath sounds Heart: S1S2 Abdomen: soft, bowel sounds present Genitourinary: bladder flat Extremities: pulses present Neurology: alert Assessment Assessment IMP GINA-MOST LIKEY DUE TO VANC-CR IMPROVED TO 1.8-NO IN ON UA ABD WALL ABSCESS PLAN HYDRATION ANTIBIOTICS WILL FOLLOW OREN DO MD Oct 14, 2019 14:20
[2019-10-14 15:00] VITALS: BP 134/74
--- NOTE | 2019-10-14 15:14 | PDOC ---
SURGICAL PROGRESS NOTE Subjective Pt feels better Vital Signs Vital Signs Date Time Temp Pulse Resp B/P (MAP) Pulse Ox O2 Delivery O2 Flow Rate FiO2 10/14/19 15:00 98.5 78 18 134/74 (94) 98 Room Air 98.5 I&O Intake and Output 10/14/19 07:00 Intake Total 2100 ml Output Total 1300 ml Balance 800 ml Intake Oral 2100 ml Output Urine Total 1300 ml # Voids 2 General: Alert, Oriented X3, Cooperative, No acute distress Abdomen: Soft, No tenderness, Other (erythema and induration improved, still with drainage) Labs Laboratory Tests Test 10/13/19 05:15 10/13/19 12:44 10/14/19 11:13 White Blood Count 9.7 x10^3/uL (4.0-11.0) Red Blood Count 4.12 x10^6/uL (4.30-5.70) Hemoglobin 11.9 g/dL (13.0-17.5) Hematocrit 35.7 % (39.0-53.0) Mean Corpuscular Volume 86 fL (79-100) Mean Corpuscular Hemoglobin 29 pg (25-35) Mean Corpuscular Hemoglobin Concent 33 g/dL (31-37) Red Cell Distribution Width 13.3 % (11.5-14.5) Platelet Count 238 x10^3/uL (140-400) Neutrophils (%) (Auto) 74 % (31-73) Lymphocytes (%) (Auto) 14 % (24-48) Monocytes (%) (Auto) 9 % (0-9) Eosinophils (%) (Auto) 3 % (0-3) Basophils (%) (Auto) 1 % (0-3) Neutrophils # (Auto) 7.2 x10^3/uL (1.8-7.7) Lymphocytes # (Auto) 1.3 x10^3/uL (1.0-4.8) Monocytes # (Auto) 0.9 x10^3/uL (0.0-1.1) Eosinophils # (Auto) 0.3 x10^3/uL (0.0-0.7) Basophils # (Auto) 0.1 x10^3/uL (0.0-0.2) Sodium Level 143 mmol/L (136-145) 142 mmol/L (136-145) Potassium Level 3.5 mmol/L (3.5-5.1) 3.2 mmol/L (3.5-5.1) Chloride Level 109 mmol/L (98-107) 106 mmol/L (98-107) Carbon Dioxide Level 23 mmol/L (21-32) 29 mmol/L (21-32) Anion Gap 11 (6-14) 7 (6-14) Blood Urea Nitrogen 11 mg/dL (8-26) 10 mg/dL (8-26) Creatinine 2.0 mg/dL (0.7-1.3) 1.8 mg/dL (0.7-1.3) Estimated GFR (Cockcroft-Gault) 41.6 47.0 BUN/Creatinine Ratio 6 (6-20) Glucose Level 92 mg/dL (70-99) 121 mg/dL (70-99) Calcium Level 8.8 mg/dL (8.5-10.1) 8.5 mg/dL (8.5-10.1) Total Bilirubin 0.4 mg/dL (0.2-1.0) Aspartate Amino Transf (AST/SGOT) 31 U/L (15-37) Alanine Aminotransferase (ALT/SGPT) 68 U/L (16-63) Alkaline Phosphatase 86 U/L (46-116) Total Protein 6.6 g/dL (6.4-8.2) Albumin 2.4 g/dL (3.4-5.0) Albumin/Globulin Ratio 0.6 (1.0-1.7) Urine Collection Type Unknown Urine Color Yellow Urine Clarity Clear Urine pH 6.5 Urine Specific [place] 1.010 Urine Protein Negative mg/dL (NEG-TRACE) Urine Glucose (UA) Negative mg/dL (NEG) Urine Ketones (Stick) Negative mg/dL (NEG) Urine Blood Trace (NEG) Urine Nitrite Negative (NEG) Urine Bilirubin Negative (NEG) Urine Urobilinogen Dipstick 0.2 mg/dL (0.2 mg/dL) Urine Leukocyte Esterase Trace (NEG) Urine RBC Occ /HPF (0-2) Urine WBC 1-4 /HPF (0-4) Urine Squamous Epithelial Cells Occ /LPF Urine Bacteria 0 /HPF (0-FEW) Laboratory Tests Test 10/14/19 11:13 Sodium Level 142 mmol/L (136-145) Potassium Level 3.2 mmol/L (3.5-5.1) Chloride Level 106 mmol/L (98-107) Carbon Dioxide Level 29 mmol/L (21-32) Anion Gap 7 (6-14) Blood Urea Nitrogen 10 mg/dL (8-26) Creatinine 1.8 mg/dL (0.7-1.3) Estimated GFR (Cockcroft-Gault) 47.0 Glucose Level 121 mg/dL (70-99) Calcium Level 8.5 mg/dL (8.5-10.1) Assessment/Plan abd wall abscess cont abx and wound care no surgical plans. FRANCOIS ZURITA MD Oct 14, 2019 15:14
[2019-10-14 19:00] VITALS: BP 137/65
[2019-10-14 23:00] VITALS: BP 138/60
[2019-10-15 03:00] VITALS: BP 143/75
[2019-10-15] MEDS: PIPERACILLIN/TAZOBACTAM 2.25 GM in IV NORMAL SALINE 50ML 50 ML IV SCH (06:08)
[2019-10-15 06:23] LABS: HEMATOCRIT 34.3 % (39.0-53.0); HEMOGLOBIN 11.4 g/dL (13.0-17.5); RED BLOOD COUNT 3.94 x10^6/uL (4.30-5.70); RED CELL DISTRIBUTION WIDTH 13.4 % (11.5-14.5); WHITE BLOOD COUNT 9.8 x10^3/uL (4.0-11.0)
[2019-10-15 06:47] LABS: ALBUMIN 2.3 g/dL (3.4-5.0); ALBUMIN/GLOBULIN RATIO 0.4 (1.0-1.7); CALCIUM 8.8 mg/dL (8.5-10.1); CREATININE 1.8 mg/dL (0.7-1.3); POTASSIUM 3.7 mmol/L (3.5-5.1); TOTAL BILIRUBIN 0.3 mg/dL (0.2-1.0)
[2019-10-15 07:00] VITALS: BP 132/74
[2019-10-15] MEDS: LACTOBACILLUS RHAMNOSUS GG 1 CAPSULE. PO SCH ×2 (08:28→20:46)
[2019-10-15] MEDS: IV NORMAL SALINE 1000ML BAG 1,000 ML IV SCH ×2 (08:29→17:07)
--- NOTE | 2019-10-15 09:31 | PDOC ---
MAGDALENA MOORE RADIO REPORTER 10/15/19 0931: SURGICAL PROGRESS NOTE Subjective up in chair no complaints Vital Signs Vital Signs Date Time Temp Pulse Resp B/P (MAP) Pulse Ox O2 Delivery O2 Flow Rate FiO2 10/15/19 07:44 Room Air 10/15/19 07:00 98.5 80 18 132/74 (93) 96 98.5 I&O Intake and Output 10/15/19 07:00 Intake Total 300 ml Balance 300 ml IV Total 300 ml # Voids 5 General: Alert, Oriented X3, Cooperative Abdomen: Soft, Other (wound with drainage, some erythema, induration ) Labs Laboratory Tests Test 10/13/19 12:44 10/14/19 11:13 10/15/19 06:05 Urine Collection Type Unknown Urine Color Yellow Urine Clarity Clear Urine pH 6.5 Urine Specific [place] 1.010 Urine Protein Negative mg/dL (NEG-TRACE) Urine Glucose (UA) Negative mg/dL (NEG) Urine Ketones (Stick) Negative mg/dL (NEG) Urine Blood Trace (NEG) Urine Nitrite Negative (NEG) Urine Bilirubin Negative (NEG) Urine Urobilinogen Dipstick 0.2 mg/dL (0.2 mg/dL) Urine Leukocyte Esterase Trace (NEG) Urine RBC Occ /HPF (0-2) Urine WBC 1-4 /HPF (0-4) Urine Squamous Epithelial Cells Occ /LPF Urine Bacteria 0 /HPF (0-FEW) Sodium Level 142 mmol/L (136-145) 142 mmol/L (136-145) Potassium Level 3.2 mmol/L (3.5-5.1) 3.7 mmol/L (3.5-5.1) Chloride Level 106 mmol/L (98-107) 106 mmol/L (98-107) Carbon Dioxide Level 29 mmol/L (21-32) 29 mmol/L (21-32) Anion Gap 7 (6-14) 7 (6-14) Blood Urea Nitrogen 10 mg/dL (8-26) 11 mg/dL (8-26) Creatinine 1.8 mg/dL (0.7-1.3) 1.8 mg/dL (0.7-1.3) Estimated GFR (Cockcroft-Gault) 47.0 47.0 Glucose Level 121 mg/dL (70-99) 76 mg/dL (70-99) Calcium Level 8.5 mg/dL (8.5-10.1) 8.8 mg/dL (8.5-10.1) White Blood Count 9.8 x10^3/uL (4.0-11.0) Red Blood Count 3.94 x10^6/uL (4.30-5.70) Hemoglobin 11.4 g/dL (13.0-17.5) Hematocrit 34.3 % (39.0-53.0) Mean Corpuscular Volume 87 fL (79-100) Mean Corpuscular Hemoglobin 29 pg (25-35) Mean Corpuscular Hemoglobin Concent 33 g/dL (31-37) Red Cell Distribution Width 13.4 % (11.5-14.5) Platelet Count 298 x10^3/uL (140-400) BUN/Creatinine Ratio 6 (6-20) Total Bilirubin 0.3 mg/dL (0.2-1.0) Aspartate Amino Transf (AST/SGOT) 24 U/L (15-37) Alanine Aminotransferase (ALT/SGPT) 48 U/L (16-63) Alkaline Phosphatase 99 U/L (46-116) Total Protein 8.0 g/dL (6.4-8.2) Albumin 2.3 g/dL (3.4-5.0) Albumin/Globulin Ratio 0.4 (1.0-1.7) Laboratory Tests Test 10/14/19 11:13 10/15/19 06:05 Sodium Level 142 mmol/L (136-145) 142 mmol/L (136-145) Potassium Level 3.2 mmol/L (3.5-5.1) 3.7 mmol/L (3.5-5.1) Chloride Level 106 mmol/L (98-107) 106 mmol/L (98-107) Carbon Dioxide Level 29 mmol/L (21-32) 29 mmol/L (21-32) Anion Gap 7 (6-14) 7 (6-14) Blood Urea Nitrogen 10 mg/dL (8-26) 11 mg/dL (8-26) Creatinine 1.8 mg/dL (0.7-1.3) 1.8 mg/dL (0.7-1.3) Estimated GFR (Cockcroft-Gault) 47.0 47.0 Glucose Level 121 mg/dL (70-99) 76 mg/dL (70-99) Calcium Level 8.5 mg/dL (8.5-10.1) 8.8 mg/dL (8.5-10.1) White Blood Count 9.8 x10^3/uL (4.0-11.0) Red Blood Count 3.94 x10^6/uL (4.30-5.70) Hemoglobin 11.4 g/dL (13.0-17.5) Hematocrit 34.3 % (39.0-53.0) Mean Corpuscular Volume 87 fL (79-100) Mean Corpuscular Hemoglobin 29 pg (25-35) Mean Corpuscular Hemoglobin Concent 33 g/dL (31-37) Red Cell Distribution Width 13.4 % (11.5-14.5) Platelet Count 298 x10^3/uL (140-400) BUN/Creatinine Ratio 6 (6-20) Total Bilirubin 0.3 mg/dL (0.2-1.0) Aspartate Amino Transf (AST/SGOT) 24 U/L (15-37) Alanine Aminotransferase (ALT/SGPT) 48 U/L (16-63) Alkaline Phosphatase 99 U/L (46-116) Total Protein 8.0 g/dL (6.4-8.2) Albumin 2.3 g/dL (3.4-5.0) Albumin/Globulin Ratio 0.4 (1.0-1.7) Assessment/Plan continue abx, wound care FRANCOIS ZURITA MD 10/15/19 1426: SURGICAL PROGRESS NOTE Assessment/Plan Pt seen and examined. Agree with Ms. Moore's note Pt without c/o abd soft, ND, NTTP, no erythema cont wound care OK to d/c MAGDALENA MOORE APRN Oct 15, 2019 09:31 FRANCOIS ZURITA MD Oct 15, 2019 14:26
--- NOTE | 2019-10-15 09:34 | PN ---
DATE: 10/15/2019 SUBJECTIVE: The patient is sitting comfortably in his chair, eating his breakfast comfortably, in no apparent distress. He denied any abdominal pain. Denied any chills, rigors or fever. PHYSICAL EXAMINATION: GENERAL: When I examined him, he looked well and was clearly in no apparent respiratory distress, slightly pale, but no jaundice, cyanosis or thyromegaly. No jugular venous distension. No lower limb edema. VITAL SIGNS: His heart rate was 80, blood pressure was 132/74, temperature was 98.5, respiratory rate was 18 and oxygen saturation was 96%. HEAD, EYES, EARS, NOSE AND THROAT: Normocephalic, atraumatic. NECK: Supple. HEART: Showed normal first and second heart sounds. No gallop, rub or murmur. CHEST: Clear to auscultation. No crepitation or rhonchi. ABDOMEN: Distended, soft with an area of induration, left to the midline on the left lower quadrant with purulent drainage. There is no guarding or rigidity. No organomegaly. All hernial orifices intact. Bowel sounds normal. NEUROLOGIC: He was awake, alert, grossly intact. His intake over the last 24 hours was 2100, output was 1300. LABORATORY DATA: His lab work this morning showed his white cell count was 9800, hemoglobin 11.4, hematocrit 34, MCV 87 and platelet count 298,000. His chemistry showed a serum sodium 142, potassium 3.7, chloride 106, bicarbonate 29, anion gap of 7, BUN 11, creatinine 1.8, estimated GFR was 47 mL per minute. His glucose was 76, calcium was 8.8. Total bilirubin, AST, ALT, alkaline phosphatase were normal. Total protein 8 and albumin was 2.3. ASSESSMENT: 1. Abdominal wall cellulitis. 2. Abdominal wall abscess. 3. Acute kidney injury. Apparently, the culture showed growth of methicillin-sensitive Staphylococcus aureus for which he is on linezolid and piperacillin, tazobactam. PLAN: No surgical plan at this time. We will continue to monitor his kidney function. WILBUR LANG MD DR: FRED/marva JOB#: [id number] / [id number]
--- NOTE | 2019-10-15 10:41 | PDOC ---
Infectious Disease Note Subjective Subjective c/o mild pain No F/C/N/F/D/SOA Vital Sign Vital Signs Vital Signs Date Time Temp Pulse Resp B/P (MAP) Pulse Ox O2 Delivery O2 Flow Rate FiO2 10/15/19 07:44 Room Air 10/15/19 07:00 98.5 80 18 132/74 (93) 96 98.5 Physical Exam PHYSICAL EXAM GENERAL: Lying down, alert in NAD HEENT: Pupils equally round and reactive. Oropharynx pink and moist. NECK: Supple. LUNGS: Clear to auscultation. CARDIAC: S1 and S2. ABDOMEN: Obese, soft, bowel sounds present. A small wound + drainage and induration, no erythema of fluctuance EXTREMITIES: No gross edema or cyanosis. SKIN: Warm to touch without signs of rash. NEUROLOGIC: Alert and answering questions appropriately. [facility] Labs Lab Laboratory Tests Test 10/14/19 11:13 10/15/19 06:05 Sodium Level 142 mmol/L (136-145) 142 mmol/L (136-145) Potassium Level 3.2 mmol/L (3.5-5.1) 3.7 mmol/L (3.5-5.1) Chloride Level 106 mmol/L (98-107) 106 mmol/L (98-107) Carbon Dioxide Level 29 mmol/L (21-32) 29 mmol/L (21-32) Anion Gap 7 (6-14) 7 (6-14) Blood Urea Nitrogen 10 mg/dL (8-26) 11 mg/dL (8-26) Creatinine 1.8 mg/dL (0.7-1.3) 1.8 mg/dL (0.7-1.3) Estimated GFR (Cockcroft-Gault) 47.0 47.0 Glucose Level 121 mg/dL (70-99) 76 mg/dL (70-99) Calcium Level 8.5 mg/dL (8.5-10.1) 8.8 mg/dL (8.5-10.1) White Blood Count 9.8 x10^3/uL (4.0-11.0) Red Blood Count 3.94 x10^6/uL (4.30-5.70) Hemoglobin 11.4 g/dL (13.0-17.5) Hematocrit 34.3 % (39.0-53.0) Mean Corpuscular Volume 87 fL (79-100) Mean Corpuscular Hemoglobin 29 pg (25-35) Mean Corpuscular Hemoglobin Concent 33 g/dL (31-37) Red Cell Distribution Width 13.4 % (11.5-14.5) Platelet Count 298 x10^3/uL (140-400) BUN/Creatinine Ratio 6 (6-20) Total Bilirubin 0.3 mg/dL (0.2-1.0) Aspartate Amino Transf (AST/SGOT) 24 U/L (15-37) Alanine Aminotransferase (ALT/SGPT) 48 U/L (16-63) Alkaline Phosphatase 99 U/L (46-116) Total Protein 8.0 g/dL (6.4-8.2) Albumin 2.3 g/dL (3.4-5.0) Albumin/Globulin Ratio 0.4 (1.0-1.7) Objective Assessment Abdominal wall abscesses with growth of MSSA ([facility]) Abdominal wall cellulitis Leukocytosis - improved Fever - improved GINA Plan Plan of Care Continue Zosyn and Zyvox ,,, change to cefazolin No surgical plans at this time Nephrology is following Continue to monitor D/w mother at bedside FRANCISCO ROPER MD Oct 15, 2019 10:41
--- NOTE | 2019-10-15 11:39 | PDOC ---
SUBJECTIVE ROS Stable OBJECTIVE Vital Signs Vital Signs Date Time Temp Pulse Resp B/P (MAP) Pulse Ox O2 Delivery O2 Flow Rate FiO2 10/15/19 07:44 Room Air 10/15/19 07:00 98.5 80 18 132/74 (93) 96 98.5 I & 0 Intake and Output 10/15/19 07:00 Intake Total 300 ml Balance 300 ml IV Total 300 ml # Voids 5 PHYSICAL EXAM Physical Exam GENERAL: NAD HEENT: Pupils equally round and reactive. Oropharynx pink and moist. NECK: Supple. LUNGS: Clear to auscultation. CARDIAC: S1 and S2. ABDOMEN: Obese, soft, bowel sounds present. EXTREMITIES: No gross edema or cyanosis. SKIN: Warm to touch without signs of rash. NEUROLOGIC: Alert and answering questions appropriately. 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 Daily BMP UA unremarkable except few WBC's Abdominal wall abscesses with growth of MSSA ([facility]) On Abx ,No surgical plans at this time COMMENT/RELEVANT DATA Meds Current Medications Medications (Trade) Dose Ordered Sig/Nadya Start Time Stop Time Status Last Admin Dose Admin Acetaminophen (Tylenol) 650 mg PRN Q6HRS PRN 10/12/19 19:15 10/14/19 05:21 650 MG Cefazolin Sodium (Ancef) 1 gm Q8HRS 10/15/19 14:00 Cefazolin Sodium 1 gm/Dextrose 50 ml @ 100 mls/hr Q8HRS 10/15/19 14:00 UNV Fentanyl Citrate (Fentanyl 2ml Vial) 50 mcg PRN Q2HR PRN 10/12/19 19:15 10/12/19 19:58 50 MCG Lactobacillus Rhamnosus (Culturelle) 1 cap BID 10/12/19 21:00 10/15/19 08:28 1 CAP Linezolid/Dextrose 300 ml @ 300 mls/hr Q12HR 10/12/19 21:00 10/15/19 10:42 DC 10/15/19 08:30 300 MLS/HR Piperacillin Sod/ Tazobactam Sod (Zosyn Per Pharmacy) 1 each PRN DAILY PRN 10/12/19 19:15 UNV Piperacillin Sod/ Tazobactam Sod 2.25 gm/Sodium Chloride 50 ml @ 100 mls/hr Q8HRS 10/13/19 14:00 10/15/19 10:42 DC 10/15/19 06:08 100 MLS/HR Piperacillin Sod/ Tazobactam Sod 3.375 gm/Sodium Chloride 50 ml @ 100 mls/hr Q6HRS 10/12/19 20:00 10/13/19 11:07 DC 10/13/19 06:15 100 MLS/HR Sodium Chloride 1,000 ml @ 100 mls/hr Q10H 10/12/19 20:00 10/15/19 08:29 100 MLS/HR Lab Laboratory Tests Test 10/15/19 06:05 White Blood Count 9.8 x10^3/uL (4.0-11.0) Red Blood Count 3.94 x10^6/uL (4.30-5.70) Hemoglobin 11.4 g/dL (13.0-17.5) Hematocrit 34.3 % (39.0-53.0) Mean Corpuscular Volume 87 fL (79-100) Mean Corpuscular Hemoglobin 29 pg (25-35) Mean Corpuscular Hemoglobin Concent 33 g/dL (31-37) Red Cell Distribution Width 13.4 % (11.5-14.5) Platelet Count 298 x10^3/uL (140-400) Sodium Level 142 mmol/L (136-145) Potassium Level 3.7 mmol/L (3.5-5.1) Chloride Level 106 mmol/L (98-107) Carbon Dioxide Level 29 mmol/L (21-32) Anion Gap 7 (6-14) Blood Urea Nitrogen 11 mg/dL (8-26) Creatinine 1.8 mg/dL (0.7-1.3) Estimated GFR (Cockcroft-Gault) 47.0 BUN/Creatinine Ratio 6 (6-20) Glucose Level 76 mg/dL (70-99) Calcium Level 8.8 mg/dL (8.5-10.1) Total Bilirubin 0.3 mg/dL (0.2-1.0) Aspartate Amino Transf (AST/SGOT) 24 U/L (15-37) Alanine Aminotransferase (ALT/SGPT) 48 U/L (16-63) Alkaline Phosphatase 99 U/L (46-116) Total Protein 8.0 g/dL (6.4-8.2) Albumin 2.3 g/dL (3.4-5.0) Albumin/Globulin Ratio 0.4 (1.0-1.7) Results All relevant outside records, renal labs, imaging studies, telemetry/EKG's were reviewed. HOOD ROSADO MD Oct 15, 2019 11:39
--- NOTE | 2019-10-15 11:51 | NUR ---
SW following. Discussed with RN. Pt from home with room mate, indp. IV abx, which per ID will be switched to orals at discharge. RN advised no SW needs. SW will continue to follow.
[2019-10-15] MEDS: ceFAZolin SODIUM IV Push 1 GM VIAL. IVP SCH ×2 (11:56→20:46)
[2019-10-15] MEDS ORDERED: ceFAZolin SODIUM 1 GM in IV DEXTROSE 5% 50 ML IV SCH (14:00)
[2019-10-15 15:00] VITALS: BP 125/86
--- NOTE | 2019-10-15 17:10 | NUR ---
Wound care: Patient seen per wound care consult. See wound assessment. Patient has abscess to abdomen. Wound cleansed, assessed, and measured. Recommendations to pack with Iodoform packing to keep wound from closing as it continues to have large amounts of drainage. Dressing applied and patient tolerated well. No other wounds noted upon complete head to toe assessment. Dressing change instructions left in room. Patient currently on abx. bed lowered and call light in reach. Spoke with RN regarding POC. Will follow patient regarding wound care.
[2019-10-15 19:00] VITALS: BP 149/82
[2019-10-15 23:00] VITALS: BP 121/72
[2019-10-16 03:00] VITALS: BP 137/75
[2019-10-16] MEDS: IV NORMAL SALINE 1000ML BAG 1,000 ML IV SCH ×2 (05:03→11:02)
[2019-10-16] MEDS: ceFAZolin SODIUM IV Push 1 GM VIAL. IVP SCH ×2 (05:04→11:02)
[2019-10-16 05:38] LABS: CALCIUM 9.2 mg/dL (8.5-10.1); CREATININE 1.8 mg/dL (0.7-1.3)
[2019-10-16 07:00] VITALS: BP 146/79
[2019-10-16] MEDS: LACTOBACILLUS RHAMNOSUS GG 1 CAPSULE. PO SCH (08:25)
--- NOTE | 2019-10-16 10:10 | PDOC ---
MAGDALENA MOORE PATIENT MANAGER 10/16/19 1010: SURGICAL PROGRESS NOTE Subjective no complaints wound care packed wound Vital Signs Vital Signs Date Time Temp Pulse Resp B/P (MAP) Pulse Ox O2 Delivery O2 Flow Rate FiO2 10/16/19 07:06 Room Air 10/16/19 07:00 97.7 75 18 146/79 (101) 97 97.7 I&O Intake and Output 10/16/19 07:00 Intake Total 200 ml Balance 200 ml Intake Oral 200 ml # Voids 4 General: Alert, Oriented X3, Cooperative Abdomen: Soft, Other (wound with packing, minimal drainage, some induration ) Labs Laboratory Tests Test 10/14/19 11:13 10/15/19 06:05 10/16/19 05:10 Sodium Level 142 mmol/L (136-145) 142 mmol/L (136-145) 143 mmol/L (136-145) Potassium Level 3.2 mmol/L (3.5-5.1) 3.7 mmol/L (3.5-5.1) 4.0 mmol/L (3.5-5.1) Chloride Level 106 mmol/L (98-107) 106 mmol/L (98-107) 106 mmol/L (98-107) Carbon Dioxide Level 29 mmol/L (21-32) 29 mmol/L (21-32) 28 mmol/L (21-32) Anion Gap 7 (6-14) 7 (6-14) 9 (6-14) Blood Urea Nitrogen 10 mg/dL (8-26) 11 mg/dL (8-26) 11 mg/dL (8-26) Creatinine 1.8 mg/dL (0.7-1.3) 1.8 mg/dL (0.7-1.3) 1.8 mg/dL (0.7-1.3) Estimated GFR (Cockcroft-Gault) 47.0 47.0 47.0 Glucose Level 121 mg/dL (70-99) 76 mg/dL (70-99) 85 mg/dL (70-99) Calcium Level 8.5 mg/dL (8.5-10.1) 8.8 mg/dL (8.5-10.1) 9.2 mg/dL (8.5-10.1) White Blood Count 9.8 x10^3/uL (4.0-11.0) Red Blood Count 3.94 x10^6/uL (4.30-5.70) Hemoglobin 11.4 g/dL (13.0-17.5) Hematocrit 34.3 % (39.0-53.0) Mean Corpuscular Volume 87 fL (79-100) Mean Corpuscular Hemoglobin 29 pg (25-35) Mean Corpuscular Hemoglobin Concent 33 g/dL (31-37) Red Cell Distribution Width 13.4 % (11.5-14.5) Platelet Count 298 x10^3/uL (140-400) BUN/Creatinine Ratio 6 (6-20) Total Bilirubin 0.3 mg/dL (0.2-1.0) Aspartate Amino Transf (AST/SGOT) 24 U/L (15-37) Alanine Aminotransferase (ALT/SGPT) 48 U/L (16-63) Alkaline Phosphatase 99 U/L (46-116) Total Protein 8.0 g/dL (6.4-8.2) Albumin 2.3 g/dL (3.4-5.0) Albumin/Globulin Ratio 0.4 (1.0-1.7) Laboratory Tests Test 10/16/19 05:10 Sodium Level 143 mmol/L (136-145) Potassium Level 4.0 mmol/L (3.5-5.1) Chloride Level 106 mmol/L (98-107) Carbon Dioxide Level 28 mmol/L (21-32) Anion Gap 9 (6-14) Blood Urea Nitrogen 11 mg/dL (8-26) Creatinine 1.8 mg/dL (0.7-1.3) Estimated GFR (Cockcroft-Gault) 47.0 Glucose Level 85 mg/dL (70-99) Calcium Level 9.2 mg/dL (8.5-10.1) Problem List continue wound care, abx FRANCOIS ZURITA MD 10/16/19 1106: SURGICAL PROGRESS NOTE Assessment/Plan Pt seen and examined. Agree with MsMike Moore's note Pt without c/o abd soft, induration improved OK to d/c home with abx. D/w ID MAGDALENA MOORE APRN Oct 16, 2019 10:10 FRANCOIS ZURITA MD Oct 16, 2019 11:06
--- NOTE | 2019-10-16 10:20 | PDOC ---
Infectious Disease Note Subjective Subjective c/o mild pain No F/C/N/F/D/SOA Vital Sign Vital Signs Vital Signs Date Time Temp Pulse Resp B/P (MAP) Pulse Ox O2 Delivery O2 Flow Rate FiO2 10/16/19 07:06 Room Air 10/16/19 07:00 97.7 75 18 146/79 (101) 97 97.7 Physical Exam PHYSICAL EXAM GENERAL: Lying down, alert in NAD HEENT: Pupils equally round and reactive. Oropharynx pink and moist. NECK: Supple. LUNGS: Clear to auscultation. CARDIAC: S1 and S2. ABDOMEN: Obese, soft, bowel sounds present. A small wound + drainage and induration, no erythema of fluctuance EXTREMITIES: No gross edema or cyanosis. SKIN: Warm to touch without signs of rash. NEUROLOGIC: Alert and answering questions appropriately. E-PICC Labs Lab Laboratory Tests Test 10/16/19 05:10 Sodium Level 143 mmol/L (136-145) Potassium Level 4.0 mmol/L (3.5-5.1) Chloride Level 106 mmol/L (98-107) Carbon Dioxide Level 28 mmol/L (21-32) Anion Gap 9 (6-14) Blood Urea Nitrogen 11 mg/dL (8-26) Creatinine 1.8 mg/dL (0.7-1.3) Estimated GFR (Cockcroft-Gault) 47.0 Glucose Level 85 mg/dL (70-99) Calcium Level 9.2 mg/dL (8.5-10.1) Objective Assessment Abdominal wall abscesses with growth of MSSA ([facility] [place]) Abdominal wall cellulitis Leukocytosis - improved Fever - improved GINA Plan Plan of Care cefazolin No surgical plans at this time Nephrology is following Continue to monitor d/w Dr Prabha jackson to d/c on po keflex f/u with PMD/Surgery will be happy to see if needed FRANCISCO ROPER MD Oct 16, 2019 10:20
--- NOTE | 2019-10-16 10:32 | PDOC ---
SUBJECTIVE ROS Stable OBJECTIVE Vital Signs Vital Signs Date Time Temp Pulse Resp B/P (MAP) Pulse Ox O2 Delivery O2 Flow Rate FiO2 10/16/19 07:06 Room Air 10/16/19 07:00 97.7 75 18 146/79 (101) 97 97.7 I & 0 Intake and Output 10/16/19 07:00 Intake Total 200 ml Balance 200 ml Intake Oral 200 ml # Voids 4 PHYSICAL EXAM Physical Exam GENERAL: NAD HEENT: Pupils equally round and reactive. Oropharynx pink and moist. NECK: Supple. LUNGS: Clear to auscultation. CARDIAC: S1 and S2. ABDOMEN: Obese, soft, bowel sounds present. EXTREMITIES: No gross edema or cyanosis. SKIN: Warm to touch without signs of rash. NEUROLOGIC: Alert and answering questions appropriately. 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 Daily BMP UA unremarkable except few WBC's Dw Pt to avoid NSAID's, Creatine, High protein shakes and Nephrotoxins Abdominal wall abscesses with growth of MSSA ([facility]) On Abx ,No surgical plans at this time Anticipating dc today per RN , recommend FU with PCP in 1 week with Renal labs If No improvement in Renal function, recommend fu with out office Dw nursing COMMENT/RELEVANT DATA Meds Current Medications Medications (Trade) Dose Ordered Sig/Nadya Start Time Stop Time Status Last Admin Dose Admin Acetaminophen (Tylenol) 650 mg PRN Q6HRS PRN 10/12/19 19:15 10/14/19 05:21 650 MG Cefazolin Sodium (Ancef) 1 gm Q8HRS 10/15/19 14:00 10/16/19 05:04 1 GM Cefazolin Sodium 1 gm/Dextrose 50 ml @ 100 mls/hr Q8HRS 10/15/19 14:00 UNV Fentanyl Citrate (Fentanyl 2ml Vial) 50 mcg PRN Q2HR PRN 10/12/19 19:15 10/12/19 19:58 50 MCG Lactobacillus Rhamnosus (Culturelle) 1 cap BID 10/12/19 21:00 10/16/19 08:25 1 CAP Linezolid/Dextrose 300 ml @ 300 mls/hr Q12HR 10/12/19 21:00 10/15/19 10:42 DC 10/15/19 08:30 300 MLS/HR Piperacillin Sod/ Tazobactam Sod (Zosyn Per Pharmacy) 1 each PRN DAILY PRN 10/12/19 19:15 UNV Piperacillin Sod/ Tazobactam Sod 2.25 gm/Sodium Chloride 50 ml @ 100 mls/hr Q8HRS 10/13/19 14:00 10/15/19 10:42 DC 10/15/19 06:08 100 MLS/HR Piperacillin Sod/ Tazobactam Sod 3.375 gm/Sodium Chloride 50 ml @ 100 mls/hr Q6HRS 10/12/19 20:00 10/13/19 11:07 DC 10/13/19 06:15 100 MLS/HR Sodium Chloride 1,000 ml @ 100 mls/hr Q10H 10/12/19 20:00 10/16/19 05:03 100 MLS/HR Lab Laboratory Tests Test 10/16/19 05:10 Sodium Level 143 mmol/L (136-145) Potassium Level 4.0 mmol/L (3.5-5.1) Chloride Level 106 mmol/L (98-107) Carbon Dioxide Level 28 mmol/L (21-32) Anion Gap 9 (6-14) Blood Urea Nitrogen 11 mg/dL (8-26) Creatinine 1.8 mg/dL (0.7-1.3) Estimated GFR (Cockcroft-Gault) 47.0 Glucose Level 85 mg/dL (70-99) Calcium Level 9.2 mg/dL (8.5-10.1) Results All relevant outside records, renal labs, imaging studies, telemetry/EKG's were reviewed. HOOD ROSADO MD Oct 16, 2019 10:32
[2019-10-16] MEDS ORDERED: CEPH-264 PO (10:52)
--- NOTE | 2019-10-16 11:44 | DS ---
DATE OF DISCHARGE: HOSPITAL COURSE: The patient is sitting comfortably in his bed, in no apparent distress. He was evaluated by the surgical team, Infectious Disease team and poacher wringer operator. Basically, there are no plans for surgical intervention. The Infectious Disease specialist recommended switching him to oral Keflex and as his creatinine has plateaued, a decision was made to discharge him home to follow with his primary care physician and Nephrology team if necessary. PHYSICAL EXAMINATION: GENERAL: When I saw him this morning, he looked well and was clearly in no apparent respiratory distress. No pallor, jaundice, cyanosis or thyromegaly. No jugular venous distention or limb edema. VITAL SIGNS: His heart rate was 75, blood pressure 146/79, temperature was 97.7, respiratory rate was 18 and oxygen saturation was 97%. The rest of clinical exam is stable. LABORATORY DATA: His lab work this morning showed a serum sodium 143, potassium 4, chloride 106, bicarbonate 28, anion gap of 9, BUN 11, creatinine 1.8, estimated GFR was 47 mL per minute, his glucose was 85 and calcium was 9.2. His white cell count was 9800, hemoglobin 11.4, hematocrit 34, MCV was 87 and platelet count 298,000. DISCHARGE MEDICATIONS: The patient will be discharged home to continue on Keflex 500 mg 4 times a day for 2 weeks. FINAL DISCHARGE DIAGNOSES: 1. Abdominal wall cellulitis, abdominal wall abscess, spontaneously drained. No surgical intervention was planned. 2. Acute kidney injury, likely due to vancomycin nephrotoxicity. The patient was advised to get a primary care physician to follow his lab work, particularly his kidney function and to continue treatment with oral Keflex for 2 weeks. WILBUR LANG MD DR: FRED/marva JOB#: [id number] / [id number]
--- NOTE | 2019-10-16 12:02 | PN ---
DATE: 10/16/2019 SUBJECTIVE: The patient is sitting comfortably in his chair, in no apparent respiratory distress. He is awake, alert, has no pain; denied any chills, rigors, or fever. His lab work showed that his creatinine has plateaued at around 1.8. OBJECTIVE: GENERAL: When I examined him, he looked well and was clearly in no apparent respiratory distress. No pallor, jaundice, cyanosis, or thyromegaly. No jugular venous distention. No limb edema. VITAL SIGNS: His heart rate was 75, blood pressure was 146/79, temperature was 97.7, respiratory rate was 18, and oxygen saturation was 97%. His intake and output are incompletely recorded. The rest of the clinical examination is stable. LABORATORY DATA: His lab work showed serum sodium 143, potassium 4, chloride 106, bicarbonate 28, anion gap of 9, BUN 11, creatinine 1.8, estimated GFR was 47 mL per minute, his glucose was 85, and calcium was 9.2. ASSESSMENT: 1. Abdominal wall cellulitis. 2. Abdominal wall abscess. 3. Acute kidney injury, likely due to vancomycin nephrotoxicity. 4. The culture showed growth of methicillin-sensitive Staphylococcus aureus for which he is on linezolid, piperacillin, and tazobactam. 5. Apparently, no surgical intervention is planned. PLAN: Await evaluation by the Infectious Disease and telecommunications administrator. This patient can be treated with oral antibiotic and can be followed as an outpatient. He can be discharged home. WILBUR LANG MD DR: FRED/marva JOB#: [id number] / [id number]
--- NOTE | 2019-10-16 12:03 | NUR ---
SW following. Discussed with RN. Pt discharging home with self care and PO abx today. No further SW needs.
--- NOTE | 2019-10-16 12:45 | NUR ---
Discharge Note: PEEWEE [facility] [place] Discharge instructions and discharge home medications reviewed with Patient and a copy given. All questions have been answered and understanding verbalized. The following instructions and handouts were given: information about wound care, medications, follow up appointments, plan of care, etc. Discontinued lines and drains: PICC line in RUE removed, pressure dressing applied and instructed patient to not remove for 48 hours. Patient discharged to home with self care with mom, patient ambulated to discharge vehicle.
== END 2019-10-16 12:45 | disposition home or self-care (01) | DRG 603 ==
LOC: 4 NORTH 18:36
PROVIDERS: ADMIT Internal Medicine; ATTEND Internal Medicine
DX: L02.211 Cutaneous abscess of abdominal wall (principal); N17.9 Acute kidney failure, unspecified; L03.311 Cellulitis of abdominal wall; B95.61 Methicillin susceptible Staphylococcus aureus infection as the cause of diseases classified elsewhere; J45.909 Unspecified asthma, uncomplicated; N14.1 Nephropathy induced by other drugs, medicaments and biological substances; T36.8X5A Adverse effect of other systemic antibiotics, initial encounter; Y92.89 Other specified places as the place of occurrence of the external cause; Z88.1 Allergy status to other antibiotic agents
CPT/HCPCS: 36415; 80048; 80053; 81001; 85025; 85027; J0690; J2020; J2543; J3010; J7030; G0378